=== PATIENT | male | born 1970 | race Caucasian/White ===

== ENCOUNTER 2019-03-14 10:47 | Day surgery (SDC) | payer OTHER ==
[2019-03-14] MEDS ORDERED: LACTATED RINGERS 1,000 ML IV ONE (11:16)
[2019-03-14] MEDS ORDERED: fentaNYL 250 MCG/5 ML VIAL IVP ONE (13:08)
[2019-03-14] MEDS ORDERED: MIDAZOLAM 2 MG/2 ML VIAL IVP ONE (13:08)
[2019-03-14 14:04] VITALS: BP 111/94
== END 2019-03-14 10:48 | disposition home or self-care (01) ==
LOC: SDS 10:47
PROVIDERS: ATTEND Internal Medicine Gastroenterology
PROC: 0DBN8ZZ Excision of Sigmoid Colon, Via Natural or Artificial Opening Endoscopic (ICD-10-PCS; principal; 2019-03-14 12:30)
DX: K59.4 Anal spasm (principal); D12.5 Benign neoplasm of sigmoid colon; K57.30 Diverticulosis of large intestine without perforation or abscess without bleeding; E66.9 Obesity, unspecified; Z80.3 Family history of malignant neoplasm of breast; Z87.891 Personal history of nicotine dependence; Z68.30 Body mass index [BMI] 30.0-30.9, adult
CPT/HCPCS: 45380; J3010; J7120

== ENCOUNTER 2019-06-07 12:08 | Emergency (ER) | payer OTHER ==
[2019-06-07 12:18] VITALS: BP 127/83
--- NOTE | 2019-06-07 12:37 | ED Physician Documentation ---
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 He said initially it felt numb in that area he got, lightheaded it was painful after several minutes he was able to drive himself to the clinic Where they cleaned it dressed it and sent him here for an L and I evaluation. His last tetanus vaccine was greater than 5 years ago. He does not have numbness or tingling down into his fingers. Minimal pain at this time. Review of Systems Skin: reports: Abrasion (s) Musculoskeletal: reports: Extremity pain Neurologic: denies: Numbness, LOC PD PAST MEDICAL HISTORY - Past Medical History Cardiovascular: None, Murmur Respiratory: Sleep apnea Endocrine/Autoimmune: None GI: Other : None HEENT: None Psych: Anxiety Musculoskeletal: None Derm: Other - Past Surgical History Ortho: ACL reconstruction - Present Medications Home Medications: Ambulatory Orders Medication Instructions Recorded Confirmed Acetaminophen [Tylenol] 325 mg PO BID 03/14/19 03/14/19 Ibuprofen 200 mg PO BID 03/14/19 03/14/19 - Allergies Allergies/Adverse Reactions: Allergies Allergy/AdvReac Type Severity Reaction Status Date / Time Penicillins Allergy Hives Verified 06/07/19 12:17 PD ED PE NORMAL - Vitals Vital signs reviewed: Yes - General General: Alert and oriented X 3, No acute distress, Well developed/nourished - Cardiac Cardiac: RRR - Respiratory Respiratory: No respiratory distress - Derm Derm: Other (Volar aspect of the left forearm there is a superficial abrasion that is a couple of centimeters wide and crosses the entire forearm. There is no laceration associated with this. 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 he is able to open the fingers fully extend and abduct them sensation is intact to light touch and there is a 2+ radial pulse.) - Extremities Extremities: No deformity - Neuro Neuro: Alert and oriented X 3, No motor deficit, No sensory deficit - Psych Psych: Normal mood, Normal affect Results - Vitals Vitals: Vital Signs - 24 hr 06/07/19 12:15 Temperature 36.4 C L Heart Rate 60 Respiratory 16 Rate Blood Pressure 127/83 H O2 Saturation 98 Oxygen O2 Source Room air PD MEDICAL DECISION MAKING - ED course Complexity details: d/w patient ED course: The wound was cleansed and dressed per nursing staff. He was updated on his tetanus vaccine and given ibuprofen for the pain. He is not placed on any work restrictions. He will watch the wound for signs of infection and follow-up if it any signs of infection develop. Departure - Departure Disposition: 01 Home, Self Care Clinical Impression: Abrasion Condition: Good Instructions: ED Abrasion Follow-Up: Jay Esparza MD [Primary Care Provider] - Comments: Keep the wound clean with mild soap and water. May apply thin layer of antibiotic ointment for comfort if desired. They have been updated on your tetanus vaccine. Ibuprofen can help with the pain if needed. Follow-up if any signs of infection to include spreading redness, increasing pain, purulent drainage.
[2019-06-07] MEDS ORDERED: IBUPROFEN 600 MG TABLET PO STA (13:02)
[2019-06-07] MEDS ORDERED: BACITRACIN ZINC OINT 15 GM TOP ONE (13:02)
[2019-06-07] MEDS ORDERED: TETANUS/DIPHTHERIA/PERTUSSIS 0.5 ML SYRINGE IM ONE (13:03)
[2019-06-07] MEDS ORDERED: BACITRACIN OINT TOP ONE (13:20)
== END 2019-06-07 13:28 | disposition home or self-care (01) ==
LOC: ED 12:08
DX: S50.812A Abrasion of left forearm, initial encounter (principal); W31.1XXA Contact with metalworking machines, initial encounter; Y92.89 Other specified places as the place of occurrence of the external cause; Y99.0 Civilian activity done for income or pay
CPT/HCPCS: 90471; 90715; 99282; 99283; A9270

== ENCOUNTER 2022-11-10 15:06 | Outpatient (CLI) | payer OTHER ==
--- NOTE | 2022-11-11 11:20 | XRAY Report ---
PROCEDURE: Knee 4 View RT INDICATIONS: RIGHT KNEE PAIN TECHNIQUE: 4 views of the right knee(s) were acquired. COMPARISON: None. FINDINGS: Bones: No acute fracture or dislocation identified. Remote healed fracture of the proximal fibula pr esent. Postsurgical changes of the knee demonstrated with a screw or pin at the lateral-mid distal fe moral metaphysis. Tricompartmental degenerative changes of the knee are present with joint space narr owing and spurring, severe at the medial compartment, moderate at the lateral compartment, mild at th e patellofemoral compartment. Soft tissues: Trace joint effusion. No suspicious soft tissue calcifications. IMPRESSION: 1. No acute fracture or dislocation identified. 2. Tricompartmental degenerative changes of the knee, severe at the medial compartment. Reviewed by: Serg Chavis MD on 11/11/2022 11:19 AM PST Approved by: Serg Chavis MD on 11/11/2022 11:19 AM PST Station ID: [id number]
== END 2022-11-10 15:07 | disposition home or self-care (01) ==
LOC: DI 15:06
PROVIDERS: ATTEND Student in an Organized Health Care Education/Training Program
DX: M17.11 Unilateral primary osteoarthritis, right knee (principal)

== ENCOUNTER 2023-03-16 08:45 | Day surgery (SDC) | payer OTHER ==
[2023-03-16] MEDS ORDERED: LACTATED RINGERS 1,000 ML IV ONE ×2 (09:03→11:35)
--- NOTE | 2023-03-16 09:27 | ANESTHESIA ---
Pre-Anesthesia VS, & Labs - Diagnosis history of polyps - Procedure colonoscopy Vital Signs: Temp Pulse Resp BP Pulse Ox O2 Flow Rate 36.1 C L 78 18 134/91 H 98 03/16/23 09:03 03/16/23 09:03 03/16/23 09:03 03/16/23 09:03 03/16/23 09:03 Height: 5 ft 5 in Weight (kg): 83 kg Body Mass Index: 30.4 BMI Classification: Obese - NPO Other (prep last at 5am) Home Medications and Allergies Home Medications: Ambulatory Orders No Known Home Medications 03/15/23 No Known Home Medications 03/15/23 Allergies/Adverse Reactions: Allergies Allergy/AdvReac Type Severity Reaction Status Date / Time Penicillins Allergy Hives Verified 03/16/23 09:20 Anes History & Medical History - Anesthetic History Anesthesia Complications: reports: No previous complications - Medical History Cardiovascular: reports: None, Murmur Pulmonary: reports: Sleep apnea Gastrointestinal: reports: Other Urinary: reports: None Musculoskeletal: reports: None Endocrine/Autoimmune: reports: None Skin: reports: Other Smoking Status: Never smoker Psychosocial: reports: Alcohol (rare) History of Cancer?: No - Surgical History General: reports: Colonoscopy Orthopedic: reports: ACL reconstruction Exam General: Alert Dental: WNL Mouth Opening: Greater than 4 Fingerbreadths Neck Mobility: Normal Mallampati classification: II Plan Anesthesia Type: Total IV Consent for Procedure(s) Verified and Reviewed: Yes Code Status: Attempt Resuscitation ASA classification: 1-Healthy patient Is this case an emergency?: No
[2023-03-16] MEDS ORDERED: PROPOFOL 500 MG/50 ML 500 MG/50 ML VIAL ONE (10:54)
[2023-03-16] MEDS ORDERED: GLYCOPYRROLATE 1 MG/5 ML VIAL ONE (11:19)
[2023-03-16 12:36] VITALS: BP 111/73
--- NOTE | 2023-03-16 13:55 | ANESTHESIA POST OP EVALUATION ---
Anesthesia Post Eval - Post Anesthesia Eval Vitals: Last Vital Signs Temp 36.3 C L 03/16/23 12:15 Pulse 82 03/16/23 12:15 Resp 15 03/16/23 12:15 BP 111/73 03/16/23 12:15 Pulse Ox 97 03/16/23 12:15 O2 Flow Rate CV Function Including HR & BP: Stable Pain Control: Satisfactory Nausea & Vomiting: Negative Mental Status: Baseline Respiratory Status: Airway Patent Hydration Status: Satisfactory Anesthesia Complications: None
== END 2023-03-16 08:46 | disposition home or self-care (01) ==
LOC: SDS 08:45
PROVIDERS: ATTEND Surgery
PROC: 0DBL8ZX Excision of Transverse Colon, Via Natural or Artificial Opening Endoscopic, Diagnostic (ICD-10-PCS; 2023-03-16)
PROC: 0DBK8ZX Excision of Ascending Colon, Via Natural or Artificial Opening Endoscopic, Diagnostic (ICD-10-PCS; principal; 2023-03-16 10:15)
DX: D12.2 Benign neoplasm of ascending colon (principal); D12.3 Benign neoplasm of transverse colon; K57.30 Diverticulosis of large intestine without perforation or abscess without bleeding; E66.9 Obesity, unspecified; G47.33 Obstructive sleep apnea (adult) (pediatric); Z68.31 Body mass index [BMI] 31.0-31.9, adult
CPT/HCPCS: 45380; J7120